=== PATIENT | male | born 1975 | race Caucasian/White ===

== ENCOUNTER 2018-12-21 13:11 | Inpatient (IN) ==
[2018-12-21] MEDS ORDERED: SODIUM CHLORIDE 0.9% 1000ML 1,000 ML IV SCH (13:30)
[2018-12-21] MEDS ORDERED: DIAZEPAM 5 MG/ML INJ 10ML VIAL IV STA ×2 (13:41→15:17)
[2018-12-21] MEDS ORDERED: DIAZEPAM 5 MG/ML INJ 10ML VIAL ONE (13:42)
[2018-12-21] MEDS ORDERED: MULTI-VITAMIN INFUSION 10 ML, THIAMINE HCL 100 MG, FOLIC ACID 1 MG in SODIUM CHLORIDE 0... IV SCH ×2 (13:45→19:30)
--- NOTE | 2018-12-21 14:13 | XRay Report ---
XR chest 1V portable HISTORY: 43 years-old Male weakness acute weakness with seizure COMPARISON: None available TECHNIQUE: Portable AP view of the chest FINDINGS: Cardiomediastinal and hilar silhouettes are within normal limits. No pneumothorax, pleural effusion, focal airspace consolidation or overt pulmonary edema. Bones of the chest appear grossly intact. IMPRESSION: No acute process. The above report was generated using voice recognition software. It may contain grammatical, syntax o r spelling errors. Electronically signed by: Fredy Morse M.D. 12/21/2018 2:11 PM
[2018-12-21 14:16] LABS: Albumin Level 4.4 gm/dl (3.4-5.0); BUN Creatinine Ratio 6.9 (10-20); Calcium 8.9 mg/dl (8.5-10.1); Creatinine Clr Calc Pharmacy 70.8 ml/min; Est GFR (Non-African American) 50.1; Potassium 3.4 mmol/L (3.5-5.1)
--- NOTE | 2018-12-21 14:24 | CT Scan Report ---
CT head/brain wo con CLINICAL HISTORY: 43 years-old Male with seizure. Acute seizure TECHNIQUE: Multiple axial CT images of the head were obtained without contrast. A dose lowering tech nique was utilized adhering to the principles of ALARA. CT DOSE: 537.48 mGy.cm COMPARISON: None. FINDINGS: No acute intracranial hemorrhage, midline shift, intracranial mass, hydrocephalus, territorial ischem ia or abnormal extra-axial collection. The calvarium is intact. Mild mucosal thickening of the ethmoid air cells. Mastoid air cells and mid dle ear cavities are clear. Soft tissues and orbits are unremarkable. IMPRESSION: No acute intracranial abnormality. The above report was generated using voice recognition software. It may contain grammatical, syntax o r spelling errors. Electronically signed by: Fredy Morse M.D. 12/21/2018 2:22 PM
[2018-12-21 14:29] LABS: Albumin Globulin Ratio 1.1 (0.9-2); Magnesium 0.6 mg/dl (1.8-2.4); Total Protein 8.4 gm/dl (6.4-8.2)
[2018-12-21] MEDS ORDERED: SODIUM CHLORIDE 0.9% 1000ML 1,000 ML IV ONE (14:29)
[2018-12-21] MEDS: MAGNESIUM SULFATE / D5W 1 GM/100 ML BAG IV SCH ×2 (14:41→15:41)
[2018-12-21 14:56] LABS: HCO3 VBG 24 mmol/L; PCO2 VBG 31 mmHg (38-50); PO2 VBG 30 mmHg
[2018-12-21 14:59] LABS: Hematocrit (blood only) 33.2 % (42-52); Hemoglobin 11.4 g/dL (14.0-18.0); Mean Corpuscular Hgb Conc 34.3 g/dL (32-36); Mean Corpuscular Volume 92.2 fL (80-100); RDW Coefficient of Variation 13.6 % (11.5-14.5); RDW Standard Deviation 46.4 fL (36.4-46.3); White Blood Count 4.66 K/uL (4.8-10.8)
[2018-12-21 15:04] LABS: Oxygen Saturation VBG < 60.0 %
[2018-12-21 15:17] LABS: Mean Platelet Volume 9.3 fL (7.4-10.4); Platelet Count 91 K/uL (130-400)
[2018-12-21] MEDS ORDERED: chlordiazePOXIDE HCl 25 MG CAP PO ONE (15:17)
[2018-12-21 15:18] LABS: Basophils # (auto) 0.02 K/uL (0-0.2); Basophils % (auto) 0.4 %; Eosinophils # (auto) 0.01 K/uL (0-0.5); Eosinophils % (auto) 0.2 %; Immature Granulocytes # (auto) 0.01 K/uL (0.00-0.02); Immature Granulocytes % (auto) 0.2 %; Lymphocytes # (auto) 0.41 K/uL (1.2-3.4); Lymphocytes % (auto) 8.8 %; Monocytes # (auto) 0.54 K/uL (0.11-0.59); Monocytes % (auto) 11.6 %; Neutrophils # (auto) 3.67 K/uL (1.4-6.5); Neutrophils % (auto) 78.8 %; Platelet Estimate Decreased (Normal)
--- NOTE | 2018-12-21 16:11 | History & Physical Report ---
Date of Service December 21, 2018 Assessment & Plan (1) Alcohol withdrawal: Patient fits to case of having an alcohol withdrawal seizure he does have an anion gap acidosis but no peripheral systemic acidosis on VBG this is likely from a lactic acidosis from his seizure. He does not appear to be in DKA and is a type II diabetic not type I beta hydroxybutyrate acid is pending Patient was given 5 of IV Valium and 100 of p.o. Librium in the ER. We will give him thiamine lactated Ringer's and a banana bag and start him on the alcohol withdrawal order set with the gabapentin and Ativan as needed (2) Hypertension: Patient will continue on his amlodipine lisinopril and metoprolol antihypertensive medications (3) Diabetes: Patient typically takes metformin he does have some transaminitis we will hold his metformin at this time put him on a carbohydrate family diet check an A1c and institute sliding scale insulin. He is asked for diabetic education which is ordered (4) Hypomagnesemia: Profound hypomagnesemia on presentation augmented by 3 g of magnesium in the ER this will be rechecked in the morning (5) Transaminitis: This is likely related to alcohol intake we will reevaluate in the morning (6) Acute dehydration: Patient is acute kidney injury with a creatinine 1.67 he will be hydrated with lactated Ringer's at 125 an hour History of Present Illness Primary Care Provider: ED TEMP This [place] [facility] [facility] [place] he began feeling much more ill tremulous was brought to our ER where reportedly he had a seizure witnessed in the waiting room. Brought to the exam room after evaluation by emergent physician felt this to be in alcohol withdrawal seizure as the patient drinks up to a half or more of a liter of vodka daily he said issues in the past with alcohol withdrawal and also accelerated hypertension. Patient currently did receive some Valium he still tremulous he is mildly tachycardic but not hypertensive he is having no hallucinations his is at the bedside and supports him but confirms that he does drink significantly most daily. Reportedly his last intake of alcohol was on December 18 In the ER he was given additional 100 mg of Librium p.o. by the emergency room physician., He had a CT scan of his head without intracranial abnormalities history but he has had similar episodes in the past for alcohol withdrawal Allergies Allergy/AdvReac Type Severity Reaction Status Date / Time No Known Allergies Allergy Unverified 12/21/18 14:29 Home Medications Home Medications Medication Instructions Recorded Confirmed Type amlodipine [Norvasc] 2.5 mg PO QAM 12/21/18 12/21/18 History cannabidiol (CBD) extract 0 mg PO DIRECTED PRN 12/21/18 12/21/18 History lisinopril 20 mg PO BID 12/21/18 12/21/18 History metformin 1,000 mg PO BID 12/21/18 12/21/18 History metoprolol succinate 25 mg PO QAM 12/21/18 12/21/18 History multivitamin 1 tab PO QAM 12/21/18 12/21/18 History Past Med/Surg History Medical History Migraine headache Hypertension Diabetes Family History Other Diabetes Hypertension Migraine headache Social History Feels Safe at Home: Yes Smoking Status: Never smoker Review of Systems Review of Systems: ROS: Patient is tremulous. Slightly agitated states she does not sleep more than to 3 hours at night No double vision blurry vision No problems with speech or swallowing No palpitations, chest pain or pressure No Wheezing or breathing issues No abdominal pain nausea vomiting diarrhea No burning urine urine frequency or changes in color No focal joint pain or muscle pain No skin rashes or oral lesions No unusual bruising or bleeding No focused back pain or numbness or loss of strength No changes in memory or confusion Physical Exam Physical Exam: The patient appeared well nourished and normally developed. Vital signs as documented. Is slightly sinus tach Head exam is unremarkable. normocephalic, atraumatic Neck is without jugular venous distension, thyromegaly, or lymphademopathy Lungs are clear to auscultation and percussion. Cardiac exam reveals tachycardic but regular no murmurs Abdominal exam reveals normal bowel sounds, no masses, no organomegaly Extremities are nonedematous and both pedal pulses are present Neurologic exam is A&Ox3, no focal deficits, strength is equal bilateral he is got a resting tremor Psychologically seems anxious Skin is warm Dry Results & Data Vital Signs (Past 12 Hours) Vital Signs Temp Pulse Pulse Resp BP BP Pulse Ox 12/21/18 15:50 94 H 24 132/82 96 12/21/18 14:02 95 12/21/18 14:01 95 12/21/18 13:55 122 H 20 137/88 94 12/21/18 13:20 36.7 C 97 H 30 H 173/107 H 98 Chest x-rays without disease EKG sinus tach PG Care Time/CCT Total # of Minutes Spent Total Time Spent with Patient: Total time spent is greater than 50% in coordination of care (as documented) at patient's floor/unit and/or counseling patient:
[2018-12-21 16:27] LABS: Beta-Hydroxybutyrate 24.89 mg/dl (0.2-2.81)
[2018-12-21] MEDS ORDERED: MAGNESIUM SULFATE / D5W 1 GM/100 ML BAG IV ONE (17:02)
--- NOTE | 2018-12-21 17:15 | Emergency Department Note ---
Entered by Lina Walters acting as a scribe for History of Present Illness General Chief complaint: Seizure Stated complaint: PT IS DIABETIC Time Seen by Provider: 12/21/18 13:26 Source: patient Mode of arrival: wheelchair Limitations: no limitations History of Present Illness Onset (ago): hour(s) 1 Location: head Radiation: non-radiation Pain Consistency: + now resolved Relieved By: + none Exacerbated By: + none Treatments prior to arrival: none The patient is a 43 year old male w/ PMHx of DM on Metformin and HTN who presents to the ED w/ CC of a seizure beginning [employer] CONS[employer]. He came to the ED this afternoon for a generalized illness, and while checking in, an ED RN witnessed the patient experience a grand mal seizure. He was confused and post-ictal afterwards. His states they have been driving today and the patient last ate a chicken wrap earlier this afternoon. He complained of feeling unwell and "shakey" so they found the closest ER. He denies any recent trauma or falls. His notes he did leave work early last week with a migraine headache. He is a regular cigar smoker. He admits to regular alcohol use and states he last drank on Saturday, 5 days ago. His reports "sometimes he drinks a lot". Home Medications Home Medications Medication Instructions Recorded Confirmed Type amlodipine [Norvasc] 2.5 mg PO QAM 12/21/18 12/21/18 History cannabidiol (CBD) extract 0 mg PO DIRECTED PRN 12/21/18 12/21/18 History lisinopril 20 mg PO BID 12/21/18 12/21/18 History metformin 1,000 mg PO BID 12/21/18 12/21/18 History metoprolol succinate 25 mg PO QAM 12/21/18 12/21/18 History multivitamin 1 tab PO QAM 12/21/18 12/21/18 History Allergies Allergy/AdvReac Type Severity Reaction Status Date / Time No Known Allergies Allergy Unverified 12/21/18 14:29 Past Med/Surg History Family History Other Diabetes Hypertension Migraine headache Social History Feels Safe at Home: Yes Smoking Status: Never smoker Review of Systems See HPI for pertinent positives & negatives. and A total of 10 systems reviewed and were otherwise negative Physical Exam Vital Signs Vital Signs - 24 hr 12/21/18 13:20 12/21/18 13:55 12/21/18 14:01 Temperature 36.7 C Temperature Source Oral Sepsis Recent Fever Within 48 Hours No Sepsis Action Taken by Nursing No Action Required Pulse Rate 97 H Pulse Rate [Apical] 122 H Pulse Rhythm Regular Pulse Rhythm [Apical] Regular Pulse Strength Normal Respiratory Rate 30 H 20 Respiratory Effort / Characteristics Non-Labored Spontaneous Respiratory Depth Normal Normal Respiratory Pattern Agonal Blood Pressure 173/107 H Blood Pressure [Right Arm] 137/88 Blood Pressure Mean 129 Blood Pressure Mean [Right Arm] 104 Blood Pressure Position Sitting Pulse Oximetry 98 94 95 Oxygen Delivery Method Room Air Room Air Room Air 12/21/18 14:02 12/21/18 15:50 Temperature Temperature Source Sepsis Recent Fever Within 48 Hours Sepsis Action Taken by Nursing Pulse Rate Pulse Rate [Apical] 94 H Pulse Rhythm Pulse Rhythm [Apical] Regular Pulse Strength Respiratory Rate 24 Respiratory Effort / Characteristics Non-Labored Respiratory Depth Normal Respiratory Pattern Regular Blood Pressure Blood Pressure [Right Arm] 132/82 Blood Pressure Mean Blood Pressure Mean [Right Arm] 98 Blood Pressure Position Pulse Oximetry 95 96 Oxygen Delivery Method Room Air GENERAL: Patient is anxious in appearance, tremulous and jittery. Mild distress. EYE EXAM: Normal conjunctiva. PERRL, no anisocoria and EOM's grossly intact w/o pain. OROPHARYNX: Moist mucus membranes. Grossly normal dentition. Tongue fasciculations noted. NECK: Supple, no nuchal rigidity, no adenopathy, non-tender. No signs of meningismus. LUNGS: Clear to auscultation. Normal chest wall mechanics. HEART: Tachycardic and regular, no MRG. ABDOMEN: Abdomen soft, non-tender, normo-active bowel sounds, no masses, no rebound or guarding. BACK: No CVA TTP. SKIN: No rashes and no bruising. UPPER EXTREMITIES: Upper extremities are grossly normal. Tremors in bilateral UE. LOWER EXTREMITIES: No pitting edema. No calf pain. NEURO EXAM: A&O x3, cranial nerves II-XII grossly intact, normal speech, 5/5 strength throughout, no sensory deficits, good finger to nose, no pronator drift, moves all 4 extremities on command w/o issue. Course 1335: The patient was evaluated in room A3 and a complete history and physical were performed. 1355: POC Glucose is over 200. 1421: I reevaluated the patient. There has been no further seizure activity. 1438: I reevaluated the patient. He is getting magnesium and nursing is rechecking his blood gas. 1506: I reevaluated the patient. He states he is feeling better. I discussed his results and my recommendation he remain in the hospital for further evaluation and management and he verbalized complete understanding and agreement. 1523: I discussed the patients case with Dr. Infante, [facility]. The patient will be further evaluated. Consultations Consultation #1: I discussed the patients case with Dr. Infante, [facility]. The patient will be further evaluated. Time: 15:23 Administered Medications Discontinued Medications Chlordiazepoxide HCl (Librium) 100 mg PO NOW ONE Stop: 12/21/18 15:18 Last Admin: 12/21/18 15:42 Dose: 100 mg Documented by: [id number] Diazepam (Valium) 5 mg IV NOW STA Stop: 12/21/18 13:42 Last Admin: 12/21/18 13:43 Dose: 5 mg Documented by: [id number] Multivitamins 10 ml/ Thiamine HCl 100 mg/ Folic Acid 1 mg/Sodium Chloride 1,011.2 mls @ 1,011.2 mls/hr IV .Q1H TOREY Stop: 12/21/18 14:44 Last Infusion: 12/21/18 15:43 Dose: 0 mls/hr Documented by: [id number] Admin: 12/21/18 14:21 Dose: 1,011.2 mls/hr Documented by: [id number] Magnesium Sulfate/Dextrose (Magnesium Sulfate / D5w) 1 gm in 100 mls @ 100 mls/ hr IV Q1H TOREY Stop: 12/21/18 16:29 Last Infusion: 12/21/18 17:00 Dose: 0 mls/hr Documented by: [id number] Admin: 12/21/18 15:41 Dose: 100 mls/hr Documented by: [id number] Infusion: 12/21/18 15:41 Dose: 100 mls/hr Documented by: [id number] Admin: 12/21/18 14:41 Dose: 100 mls/hr Documented by: [id number] Sodium Chloride (Nss 1000ml) 1,000 mls @ 999 mls/hr IV .Q1H1M ONE Stop: 12/21/18 15:29 Last Admin: 12/21/18 15:30 Dose: 999 mls/hr Documented by: [id number] Medical Decision Making Medical Records Attestation: I reviewed the patient's medical records. Home Medications Current Medication List: was personally reviewed by me Laboratory Data Attestation: I reviewed the patient's lab results. Result diagrams: 12/21/18 14:40 12/21/18 13:30 Lab Results 12/21/18 12/21/18 12/21/18 Range/Units 13:30 13:30 14:40 WBC Cancelled RBC Cancelled Hgb Cancelled Hct Cancelled MCV Cancelled MCH Cancelled MCHC Cancelled RDW Std Deviation Cancelled RDW Coeff of Charlene Cancelled Plt Count Cancelled MPV Cancelled Immature Gran % (Auto) Cancelled Neut % (Auto) Cancelled Lymph % (Auto) Cancelled [place] % (Auto) Cancelled Eos % (Auto) Cancelled Baso % (Auto) Cancelled Immature Gran # (Auto) Cancelled Neut # (Auto) Cancelled Lymph # (Auto) Cancelled [place] # (Auto) Cancelled Eos # (Auto) Cancelled Baso # (Auto) Cancelled Absolute Nucleated RBC Cancelled Nucleated RBC % (auto) Cancelled Neutrophils % (Manual) Cancelled Band Neutrophils % Cancelled Lymphocytes % (Manual) Cancelled Prolymphocyte % Cancelled Reactive Lymphs % (Man) Cancelled Monocytes % (Manual) Cancelled Eosinophils % (Manual) Cancelled Basophils % (Manual) Cancelled Metamyelocytes % (Man) Cancelled Myelocytes % (Man) Cancelled Promyelocytes % (Man) Cancelled Blast Cells % (Manual) Cancelled Plasma Cell % (Manual) Cancelled Other Cells % Cancelled Nucleated RBC % Cancelled Neutrophils # (Manual) Cancelled Band Neutrophils # Cancelled Total Absolute Neuts Cancelled Lymphocytes # (Manual) Cancelled Prolymphocyte # Cancelled Reactive Lymphs # Cancelled Total Abs Lymphocytes Cancelled Monocytes # (Manual) Cancelled Eosinophils # (Manual) Cancelled Basophils # (Manual) Cancelled Metamyelocytes # (Man) Cancelled Myelocytes # (Manual) Cancelled Promyelocytes # (Man) Cancelled Blast Cells # (Man) Cancelled Plasma Cell # (Manual) Cancelled Other Cells # Cancelled Nucleated RBCs # (Man) Cancelled Hypersegmented Neuts Cancelled Hyposegmented Neuts Cancelled Hypogranular Neuts Cancelled Large Granular Lymphs Cancelled # Lrg Granular Lymphs Cancelled Hairy Cells Cancelled Smudge Cells Cancelled Toxic Granulation Cancelled Toxic Vacuolation Cancelled Dohle Bodies Cancelled Sharifa Rods Cancelled Platelet Estimate Cancelled Hypogranular Platelets Cancelled Clumped Platelets Cancelled Giant Platelets Cancelled Platelet Satelliting Cancelled RBC Morphology Cancelled Polychromasia Cancelled Hypochromasia Cancelled Poikilocytosis Cancelled Basophilic Stippling Cancelled Anisocytosis Cancelled Microcytosis Cancelled Macrocytosis Cancelled Spherocytes Cancelled Pappenheimer Bodies Cancelled Sickle Cells Cancelled Target Cells Cancelled Tear Drop Cells Cancelled Ovalocytes Cancelled Stomatocytes Cancelled Griffin-Stollings Bodies Cancelled Echinocytes Cancelled Acanthocytes (Spur) Cancelled Rouleaux Cancelled RBC Agglutinates Cancelled Schistocytes Cancelled RBC Morph Comment Cancelled Sezary Cell Cancelled VBG pH (7.36-7.41) VBG pCO2 (38-50) mmHg VBG pO2 mmHg VBG HCO3 mmol/L VBG O2 Saturation % VBG Base Excess mEq/L Barometric Pressure mm/Hg Sodium 141 (136-145) mmol/L Potassium 3.4 L (3.5-5.1) mmol/L Chloride 95 L (98-107) mmol/L Carbon Dioxide 14 L (21-32) mmol/L Anion Gap 32.0 H (3-11) BUN 12 (7-18) mg/dl Creatinine 1.67 H (0.6-1.4) mg/dl Est Cr Clr Drug Dosing 70.8 ml/min Est GFR ( Amer) 58.0 Est GFR (Non-Af Amer) 50.1 BUN/Creatinine Ratio 6.9 L (10-20) Glucose 261 H (70-99) mg/dl Calcium 8.9 (8.5-10.1) mg/dl Magnesium 0.6 L* (1.8-2.4) mg/dl Total Bilirubin 2.0 H (0.2-1) mg/dl AST 185 H (15-37) U/L ALT 136 H (12-78) U/L Alkaline Phosphatase 183 H (45-117) U/L Total Protein 8.4 H (6.4-8.2) gm/dl Albumin 4.4 (3.4-5.0) gm/dl Globulin 4.0 (2.5-4.0) gm/dl Albumin/Globulin Ratio 1.1 (0.9-2) Beta-Hydroxybutyric Acd 24.89 H (0.2-2.81) mg/dl TSH 3.760 (0.300-4.500) uIu/ml Ethyl Alcohol mg/dL < 3.0 (0-3) mg/dl 12/21/18 12/21/18 Range/Units 14:40 14:40 WBC 4.66 L RBC 3.60 L Hgb 11.4 L Hct 33.2 L MCV 92.2 MCH 31.7 MCHC 34.3 RDW Std Deviation 46.4 H RDW Coeff of Charlene 13.6 Plt Count 91 L MPV 9.3 Immature Gran % (Auto) 0.2 Neut % (Auto) 78.8 Lymph % (Auto) 8.8 [place] % (Auto) 11.6 Eos % (Auto) 0.2 Baso % (Auto) 0.4 Immature Gran # (Auto) 0.01 Neut # (Auto) 3.67 Lymph # (Auto) 0.41 L [place] # (Auto) 0.54 Eos # (Auto) 0.01 Baso # (Auto) 0.02 Absolute Nucleated RBC Nucleated RBC % (auto) Neutrophils % (Manual) Band Neutrophils % Lymphocytes % (Manual) Prolymphocyte % Reactive Lymphs % (Man) Monocytes % (Manual) Eosinophils % (Manual) Basophils % (Manual) Metamyelocytes % (Man) Myelocytes % (Man) Promyelocytes % (Man) Blast Cells % (Manual) Plasma Cell % (Manual) Other Cells % Nucleated RBC % Neutrophils # (Manual) Band Neutrophils # Total Absolute Neuts Lymphocytes # (Manual) Prolymphocyte # Reactive Lymphs # Total Abs Lymphocytes Monocytes # (Manual) Eosinophils # (Manual) Basophils # (Manual) Metamyelocytes # (Man) Myelocytes # (Manual) Promyelocytes # (Man) Blast Cells # (Man) Plasma Cell # (Manual) Other Cells # Nucleated RBCs # (Man) Hypersegmented Neuts Hyposegmented Neuts Hypogranular Neuts Large Granular Lymphs # Lrg Granular Lymphs Hairy Cells Smudge Cells Toxic Granulation Toxic Vacuolation Dohle Bodies Sharifa Rods Platelet Estimate Decreased L Hypogranular Platelets Clumped Platelets Giant Platelets Platelet Satelliting RBC Morphology Polychromasia Hypochromasia Poikilocytosis Basophilic Stippling Anisocytosis Microcytosis Macrocytosis Spherocytes Pappenheimer Bodies Sickle Cells Target Cells Tear Drop Cells Ovalocytes Stomatocytes Griffin-Stollings Bodies Echinocytes Acanthocytes (Spur) Rouleaux RBC Agglutinates Schistocytes RBC Morph Comment Sezary Cell VBG pH 7.50 H (7.36-7.41) VBG pCO2 31 L (38-50) mmHg VBG pO2 30 mmHg VBG HCO3 24 mmol/L VBG O2 Saturation < 60.0 % VBG Base Excess 1.0 mEq/L Barometric Pressure 730.9 mm/Hg Sodium (136-145) mmol/L Potassium (3.5-5.1) mmol/L Chloride (98-107) mmol/L Carbon Dioxide (21-32) mmol/L Anion Gap (3-11) BUN (7-18) mg/dl Creatinine (0.6-1.4) mg/dl Est Cr Clr Drug Dosing ml/min Est GFR ( Amer) Est GFR (Non-Af Amer) BUN/Creatinine Ratio (10-20) Glucose (70-99) mg/dl Calcium (8.5-10.1) mg/dl Magnesium (1.8-2.4) mg/dl Total Bilirubin (0.2-1) mg/dl AST (15-37) U/L ALT (12-78) U/L Alkaline Phosphatase (45-117) U/L Total Protein (6.4-8.2) gm/dl Albumin (3.4-5.0) gm/dl Globulin (2.5-4.0) gm/dl Albumin/Globulin Ratio (0.9-2) Beta-Hydroxybutyric Acd (0.2-2.81) mg/dl TSH (0.300-4.500) uIu/ml Ethyl Alcohol mg/dL (0-3) mg/dl Imaging Data Radiologist's Impression: Radiology results as stated below per my review and the radiologist's interpretation: CT head/brain wo con CLINICAL HISTORY: 43 years-old Male with seizure. Acute seizure TECHNIQUE: Multiple axial CT images of the head were obtained without contrast. A dose lowering technique was utilized adhering to the principles of ALARA. CT DOSE: 537.48 mGy.cm COMPARISON: None. FINDINGS: No acute intracranial hemorrhage, midline shift, intracranial mass, hydrocephalus, territorial ischemia or abnormal extra-axial collection. The calvarium is intact. Mild mucosal thickening of the ethmoid air cells. Mastoid air cells and middle ear cavities are clear. Soft tissues and orbits are unremarkable. IMPRESSION: No acute intracranial abnormality. The above report was generated using voice recognition software. It may contain grammatical, syntax or spelling errors. Electronically signed by: Fredy Morse M.D. 12/21/2018 2:22 PM XR chest 1V portable HISTORY: 43 years-old Male weakness acute weakness with seizure COMPARISON: None available TECHNIQUE: Portable AP view of the chest FINDINGS: Cardiomediastinal and hilar silhouettes are within normal limits. No pneumothorax, pleural effusion, focal airspace consolidation or overt pulmonary edema. Bones of the chest appear grossly intact. IMPRESSION: No acute process. The above report was generated using voice recognition software. It may contain grammatical, syntax or spelling errors. Electronically signed by: Fredy Morse M.D. 12/21/2018 2:11 PM ECG Data Attestation: I personally reviewed and interpreted this ECG as follows: Indication: other (seizure) Rate (beats per minute): 105 Rhythm: sinus tachycardia Findings: + other (Normal intervals, normal axis) and + T-wave inversion (in lead 3) Blood Pressure Blood Pressure Findings: Elevated blood pressure Blood Pressure Disposition: further management by hospitalist MDM Narrative The patient is a 43 year old male w/ PMHx of DM on Metformin and HTN who presents to the ED w/ CC of a seizure beginning [employer] CON[employer]ANT. Differential diagnosis includes etiologies such as infection, hypoglycemia, electrolyte abnormalities, cardiac sources, intracerebral event, trauma, toxicologic, neurologic, as well as others were entertained. Patient was seen and evaluated the bedside. The patient did present after having some generalized illness and associated seizure in the waiting room. Apparently is fairly brief and was somewhat postictal. Patient does appear t remulous and anxious. After further discussion the patient is somewhat evasive about his poorly has not had a drink since Saturday. Patient does have good [id number] and no visual deficits his gaze is intact although the patient again is somewhat tremulous. Patient did have blood work completed along with EKG chest x-ray CT of the head urinalysis and alcohol level. The patient was immediately given IV Valium as I am concerned about the patient's alcohol use and possible withdrawal-like symptoms. The patient was given IV fluids as well as an IV banana bag. Patient was noted to have very low magnesium. Additional magnesium was ordered. Upon reevaluation the patient was feeling mild. He was ordered additional Valium as well as some p.o. Librium. He was counseled on alcohol abuse. The patient did have an EKG which does not show abnormal intervals. Patient was given a total of 3 g of magnesium in the department. I did consider the possibility of DKA given the patient's anion gap and associated slightly elevated blood sugar; however, patient is a [id number] diabetic and the patient's pH is 7.5. Impression & Plan Alcohol withdrawal, Acute dehydration, Hypomagnesemia, Transaminitis Critical Care Time Critical Care Time: Yes Total Critical Care Time: 45 I have personally spent 45 minutes of critical care time in the direct management of this patient. This includes bedside care, interpretation of diagnostic studies, and testing, discussion with consultants, patient, and family members, and other required patient management activities. This 45 minutes is in excess of all separately billable procedures. Discharge Plan Visit Data Chief Complaint: Seizure Stated Complaint: PT IS DIABETIC Other Complaint: Hyperglycemia ED Provider: Braydon White Discharge Problem: Alcohol withdrawal, Acute dehydration, Hypomagnesemia, Transaminitis Patient Disposition: Being Evaluated by Hospitalist Forms Stand Alone Forms: My [facility] Prescriptions Prescriptions: No Action lisinopril 20 mg Tablet 20 mg PO BID RF: 0 amlodipine [Norvasc] 2.5 mg Tablet 2.5 mg PO QAM RF: 0 metoprolol succinate 25 mg Tablet Extended Release 24 Hr 25 mg PO QAM RF: 0 metformin 500 mg Tablet 1,000 mg PO BID RF: 0 multivitamin Tablet 1 tab PO QAM RF: 0 cannabidiol (CBD) extract 100 mg/mL Solution PO DIRECTED PRN (Reason: Sleep) RF: 0 Referrals Referrals: TEMP,ED [Primary Care Provider] - The scribe's documentation has been prepared under my direction and personally reviewed by me in its entirety. I confirm that the note above accurately reflec ts all work, treatment, procedures, and medical decision making performed by me.
[2018-12-21 17:18] LABS: Appearance Urine Clear (Clear); Bacteria Urine Automated Negative (Negative); Bilirubin Urine Negative (Negative); Blood Urine Trace (Negative); Color Urine Dark Yellow; Glucose Urine UA 3+ (Negative); Ketones Urine 2+ (Negative); Leukocyte Esterase Urine Trace (Negative); Nitrite Urine Negative (Negative); RBC Urine Automated 0-4 /hpf (0-4); Urobilinogen Urine Negative (Negative)
[2018-12-21 17:21] LABS: Protein Urine 2+ (Negative)
[2018-12-21] MEDS ORDERED: GLUCOSE 40% GEL 15 GM TUBE PO PRN (18:40)
[2018-12-21] MEDS ORDERED: CARBOHYDRATES FOR HYPOGLYCEMIA PO PRN (18:40)
[2018-12-21] MEDS ORDERED: ONDANSETRON INJ 2 MG/ML 2 ML VIAL IV PRN (18:40)
[2018-12-21] MEDS ORDERED: GLUCAGON FOR INJ 1 MG VIAL SQ PRN (18:40)
[2018-12-21] MEDS ORDERED: GLUCOSE 10 TABS/TUBE PO PRN (18:40)
[2018-12-21] MEDS ORDERED: GABAPENTIN 1200MG ALCOHOL WITHDRAWAL LOAD PO STA (18:40)
[2018-12-21] MEDS ORDERED: ALUMINUM/MAGNESIUM SUSP 30 ML UDC PO PRN (18:40)
[2018-12-21] MEDS ORDERED: LORazepam 1 MG TAB PO PRN (18:40)
[2018-12-21] MEDS ORDERED: DEXTROSE 50% 50 ML SYRINGE IV PRN (18:40)
[2018-12-21] MEDS ORDERED: GABAPENTIN 600 MG TAB PO ONE (19:00)
[2018-12-21] MEDS: LISINOPRIL 20 MG TAB PO SCH (19:51)
[2018-12-21] MEDS: THIAMINE HCL 100 MG in SYRINGE 9 ML IV SCH (19:51)
[2018-12-21] MEDS: INSULIN ASPART 100 UNITS/ML 3 ML PEN SC SCH (21:19)
[2018-12-21] MEDS: LACTATED RINGER'S 1,000 ML IV SCH (21:22)
[2018-12-21] MEDS: GABAPENTIN 600 MG TAB PO SCH (23:38)
[2018-12-22] MEDS: LACTATED RINGER'S 1,000 ML IV SCH ×2 (04:16→15:13)
[2018-12-22] MEDS: GABAPENTIN 600 MG TAB PO SCH ×3 (04:17→19:34)
[2018-12-22 06:27] LABS: Estimated Average Glucose 131 mg/dl; Hemoglobin A1C 6.2 % (4.5-5.6)
[2018-12-22 06:32] LABS: Albumin Level 3.3 gm/dl (3.4-5.0); BUN Creatinine Ratio 6.5 (10-20); Bilirubin,Total 1.6 mg/dl (0.2-1); Calcium 7.7 mg/dl (8.5-10.1); Creatinine Clr Calc Pharmacy 132.4 ml/min; Est GFR (African American) 119.3; Est GFR (Non-African American) 102.9; Globulin 3.3 gm/dl (2.5-4.0); Magnesium 1.3 mg/dl (1.8-2.4); Potassium 3.5 mmol/L (3.5-5.1); Total Protein 6.6 gm/dl (6.4-8.2)
[2018-12-22] MEDS: INSULIN ASPART 100 UNITS/ML 3 ML PEN SC SCH ×4 (08:35→21:24)
[2018-12-22] MEDS: AMLODIPINE BESYLATE 5 MG TAB PO SCH (08:36)
[2018-12-22] MEDS: METOPROLOL SUCC 25MG EXT REL TAB PO SCH (08:36)
[2018-12-22] MEDS: LISINOPRIL 20 MG TAB PO SCH ×2 (08:36→21:17)
[2018-12-22] MEDS: MAGNESIUM SULFATE / D5W 1 GM/100 ML BAG IV SCH ×3 (08:37→11:15)
[2018-12-22] MEDS ORDERED: chlordiazePOXIDE HCl 25 MG CAP PO ONE (11:48)
[2018-12-22] MEDS: chlordiazePOXIDE HCl 25 MG CAP PO SCH ×2 (16:22→21:22)
[2018-12-22] MEDS: THIAMINE HCL 100 MG in SYRINGE 9 ML IV SCH (19:34)
[2018-12-23] MEDS: GABAPENTIN 600 MG TAB PO SCH (04:32)
[2018-12-23] MEDS: chlordiazePOXIDE HCl 25 MG CAP PO SCH (04:33)
[2018-12-23 05:49] LABS: Hemoglobin 11.2 g/dL (14.0-18.0); Mean Corpuscular Hgb Conc 33.9 g/dL (32-36); Mean Corpuscular Volume 94.8 fL (80-100); RDW Coefficient of Variation 13.6 % (11.5-14.5); RDW Standard Deviation 47.4 fL (36.4-46.3); Red Blood Count 3.48 M/uL (4.7-6.1); White Blood Count 5.22 K/uL (4.8-10.8)
[2018-12-23 05:52] LABS: Mean Platelet Volume 9.7 fL (7.4-10.4); Platelet Count 73 K/uL (130-400)
[2018-12-23 06:22] LABS: BUN Creatinine Ratio 7.7 (10-20); Calcium 7.9 mg/dl (8.5-10.1); Creatinine Clr Calc Pharmacy 118.6 ml/min; Est GFR (African American) 105.3; Est GFR (Non-African American) 90.9; Magnesium 1.7 mg/dl (1.8-2.4); Potassium 3.2 mmol/L (3.5-5.1)
--- NOTE | 2018-12-23 07:14 | Hospitalist Progress Note ---
Date of Service December 22, 2018 Assessment & Plan (1) Alcohol withdrawal: Pt remains on the AWSS protocol, given neruontin and started on librium he was given thiamine lactated Ringer's and a banana bag and start him on the alcohol withdrawal order set with the gabapentin and Ativan as needed (2) Hypertension: continues on amlodipine lisinopril and metoprolol antihypertensive medications (3) Diabetes: continue to hold his metformin using ssi (4) Hypomagnesemia: Profound hypomagnesemia on presentation augmented by 3 g of magnesium now replete (5) Transaminitis: This is likely related to alcohol intake (6) Acute dehydration: resolved Subjective pt is much less tremulous. he remains tachycardic and mildly hypertensive, family is at the bedside and updated Review of Systems Constitutional: + fatigue and + weakness Respiratory: no cough, no chest congestion and no dyspnea Cardiovascular: no chest pain and no dyspnea on exertion Gastrointestinal: no abdominal pain, no nausea and no vomiting Musculoskeletal: no joint pain and no swelling Integumentary: no rash and no lesions Physical Exam Constitutional: well developed and average body habitus Eyes: no conjunctival abnormality and no scleral abnormality Neck: normal visual inspection and trachea midline Respiratory: normal respiratory effort; no respiratory distress Auscultation: lungs clear to auscultation bilaterally Cardiovascular: RRR, no murmur, no edema Gastrointestinal (Abdomen): normal bowel sounds, soft, nontender, no hepatosplenomegaly Musculoskeletal: no cyanosis or clubbing, extremities motor strength 5/5 Results & Data Vital Signs (Past 12 Hours) Vital Signs Temp Pulse Resp BP BP Pulse Ox 12/23/18 04:00 37.5 C 96 H 16 130/95 97 12/22/18 23:18 37.5 C 99 H 16 117/87 97 12/22/18 21:15 37.6 C H 107 H 18 160/94 H 100 12/22/18 19:32 37.6 C H 102 H 20 12/22/18 19:17 38.0 C H 109 H 28 H 152/101 H 94 PG Care Time/CCT Total # of Minutes Spent Total Time Spent with Patient: Total time spent is greater than 50% in coordination of care (as documented) at patient's floor/unit and/or counseling patient:
[2018-12-23] MEDS: LISINOPRIL 20 MG TAB PO SCH (07:25)
[2018-12-23] MEDS: METOPROLOL SUCC 25MG EXT REL TAB PO SCH (07:26)
[2018-12-23] MEDS: AMLODIPINE BESYLATE 5 MG TAB PO SCH (07:26)
[2018-12-23] MEDS: INSULIN ASPART 100 UNITS/ML 3 ML PEN SC SCH (08:40)
--- NOTE | 2018-12-23 10:44 | Discharge Summary ---
Date of Service December 23, 2018 Admission HPI Per Admitting Provider This patient [place] where he began feeling much more ill tremulous was brought to our ER where reportedly he had a seizure witnessed in the waiting room. Brought to the exam room after evaluation by emergent physician felt this to be in alcohol withdrawal seizure as the patient drinks up to a half or more of a liter of vodka daily he said issues in the past with alcohol withdrawal and also accelerated hypertension. Patient currently did receive some Valium he still tremulous he is mildly tachycardic but not hypertensive he is having no hallucinations his is at the bedside and supports him but confirms that he does drink significantly most daily. Reportedly his last intake of alcohol was on December 18 In the ER he was given additional 100 mg of Librium p.o. by the emergency room physician., He had a CT scan of his head without intracranial abnormalities history but he has had similar episodes in the past for alcohol withdrawal Principal Diagnosis alcohol withdrawal Discharge Exam Constitutional well developed and average body habitus Eyes no conjunctival abnormality and no scleral abnormality Neck normal visual inspection and trachea midline Respiratory normal respiratory effort; no respiratory distress Auscultation: lungs clear to auscultation bilaterally Cardiovascular RRR, no murmur, no edema Gastrointestinal (Abdomen) normal bowel sounds, soft, nontender, no hepatosplenomegaly Musculoskeletal no cyanosis or clubbing, extremities motor strength 5/5 Discharge Data Allergies Allergy/AdvReac Type Severity Reaction Status Date / Time No Known Allergies Allergy Unverified 12/21/18 14:29 Consultations 12/21/18 15:20 ED Decision to Admit Stat Ordered Studies 12/21/18 13:27 CT head/brain wo con Stat Hospital Course (1) Alcohol withdrawal: Pt tolerated awss protocol and is much improved will disharged on tapering neruontin and started on librium He is recommended close follow up and engagement in a alcoholic addiction support group (2) Hypertension: continues on amlodipine lisinopril and metoprolol antihypertensive medications (3) Diabetes: resume metformin and carbohydrate conservative diet (4) Hypomagnesemia: Profound hypomagnesemia on presentation augmented by 3 g of magnesium now replete (5) Transaminitis: This is likely related to alcohol intake (6) Acute dehydration: resolved Total Time Total Time Spent Total Time Spent (In Minutes): greater than 30 minutes were required to prepare discharge Discharge Plan Discharge Items Patient Disposition: Home - Self-Care Reason For Visit: ALCOHO WITHDRAWAL SEIZURE Discharge Diagnosis: alcohol withdrawal Discharge Goals: Decrease discomfort, Diagnostic testing and Improve disease control Activity: Resume your previous activity Non-emergency contact: Primary Care Provider Call non-emergency contact if: you have any medication questions Follow-up/Referrals: TEMP,ED [Primary Care Provider] - Diet: Regular Addtl Provider Instructions: consider creating a more frequent relationship with your primary care provider to help improve your overall health for blood pressure and diabetes, please ask your primary provider to continue to monitor your diabetes and encourage weight loss Please abstain from alcohol use, strongly consider re engaging in alcohol counselling Prescriptions: New chlordiazepoxide HCl 10 mg capsule 10 mg PO UD Qty: 25 RF: 0 gabapentin 600 mg tablet 600 mg PO UD Qty: 14 RF: 0 Continued lisinopril 20 mg Tablet 20 mg PO BID RF: 0 amlodipine [Norvasc] 2.5 mg Tablet 2.5 mg PO QAM RF: 0 metoprolol succinate 25 mg Tablet Extended Release 24 Hr 25 mg PO QAM RF: 0 metformin 500 mg Tablet 1,000 mg PO BID RF: 0 multivitamin Tablet 1 tab PO QAM RF: 0 cannabidiol (CBD) extract 100 mg/mL Solution PO DIRECTED PRN (Reason: Sleep) RF: 0 Stand-Alone Forms: [employer]/Other Patient Handouts: Diabetes Alcohol Consumption, Withdrawal Alcohol What Expect, Dehydration, Hypomagnesemia Dc Discharge Orders: Discharge Order (Routine); Ordered 12/23/18 Ordered By: Bjorn Infante Admission Data Admit Date/Time: 12/21/18 16:06 Attending Provider: Bjorn Infante Admit Provider: Bjorn Infante Primary Care Provider: MONAE PERERA Other Providers: Bjorn Infante Service: Telemetry Medical Other Interventions: Discharge Summary Assessment (RN) Last Done: 12/23/18 08:49 DC Date/Time DO NOT enter until pt leaves facility: 12/23/18 09:16
[2018-12-23] MEDS ORDERED: GABAPENTIN 600 MG TAB PO SCH (16:02)
[2018-12-25] MEDS ORDERED: GABAPENTIN 600 MG TAB PO SCH (06:00)
== END 2018-12-23 09:16 | disposition home or self-care (01) | DRG 897 ==
LOC: ED 13:11 → 2E 16:06